=== PATIENT | female | born 1970 | race Caucasian/White ===

== ENCOUNTER 2016-08-20 08:42 | Outpatient (CLI) | payer OTHER | END 2016-08-20 08:43 | disposition home or self-care (01) | DX: Z32.00 Encounter for pregnancy test, result unknown (principal) ==

== ENCOUNTER 2016-08-22 08:13 | Outpatient (CLI) | payer OTHER | END 2016-08-22 08:14 | disposition home or self-care (01) | DX: Z32.00 Encounter for pregnancy test, result unknown (principal) ==

== ENCOUNTER 2019-08-10 11:05 | Outpatient (CLI) | payer BC | END 2019-08-10 11:06 | disposition home or self-care (01) | LOC: COV 11:05 | PROVIDERS: ATTEND Family Medicine | DX: R05 Cough (principal) | CPT/HCPCS: 81599 ==